=== PATIENT | female | born 1990 | race Caucasian/White ===

== ENCOUNTER 2020-07-31 23:16 | Inpatient (IN) | payer MEDICAID ==
[~2020-07-31] VITALS: Ht 157.5 cm; Wt 67.3 kg
--- NOTE | 2020-07-31 23:10 | NUR ---
GUILLERMO SANCHEZ presented to unit via W/C from home/ED, accompanied by Yina Ryan & DON, with c/o LABOR. GUILLERMO SANCHEZ weighed, gowned, voided, and to bed. EFHM and TOCO applied, VS taken. GUILLERMO SANCHEZ oriented to bed controls, call light, TV, heat, and A/C controls.
[2020-07-31 23:17] VITALS: BP 113/82
[2020-07-31] MEDS ORDERED: D5 LR IV SOLUTION 1,000 ML IV ONE (23:20)
[2020-07-31] MEDS ORDERED: OXYTOCIN PRE-MIX DRIP 500 ML IV ONE (23:27)
[2020-07-31] MEDS ORDERED: D5 LR IV SOLUTION 1,000 ML IV SCH (23:35)
[2020-07-31] MEDS ORDERED: OXYTOCIN PRE-MIX DRIP 500 ML IV SCH (23:37)
[2020-07-31 23:44] LABS: BASOPHILS % (AUTO) 0 % (0-10); EOSINOPHILS # (AUTO) 0.1 10^3/uL (0.0-0.3); EOSINOPHILS % (AUTO) 0 % (0-10); HEMATOCRIT 37 % (35-52); HEMOGLOBIN 12.7 G/DL (11.5-16.0); LYMPHOCYTES # (AUTO) 2.3 X 10^3 (1.0-4.0); LYMPHOCYTES % (AUTO) 19 % (12-44); MEAN CORPUSCULAR HEMOGLOBIN 33 PG (25-34); MEAN CORPUSCULAR HGB CONC 34 G/DL (32-36); MEAN CORPUSCULAR VOLUME 97 FL (80-99); MONOCYTES # (AUTO) 1.1 X 10^3 (0.0-1.0); MONOCYTES % (AUTO) 9 % (0-12); NEUTROPHILS # (AUTO) 8.6 X 10^3 (1.8-7.8); NEUTROPHILS % (AUTO) 72 % (42-75); PLATELET COUNT 264 10^3/uL (130-400)
[2020-07-31 23:46] VITALS: BP 122/83
[2020-07-31] MEDS ORDERED: fentaNYL 2 mcg/ml BUPIVA 0.125 0 ML ONE (23:52)
[2020-08-01] VITALS (14 sets, daily range): BP systolic 101–140; BP diastolic 60–89
[2020-08-01] MEDS ORDERED: LIDOCAINE 1% INJ 20 ML 20 ML VIAL ONE ×2 (00:02→00:14)
--- NOTE | 2020-08-01 00:41 | History & Physical-OB/GYN ---
History of Present Illness History of Present Illness Reason for visit/HPI Intrauterine at 39 3/7 weeks with SROM Date of Admission Jul 31, 2020 at 23:30 Date Seen by a Provider: Aug 01, 2020 Time Seen by a Provider: 00:10 I consulted on this patient on 08/01/20 00:36 Attending Physician Meño Witt DO Admitting Physician Meño Witt DO Consult Allergies and Home Medications Allergies Coded Allergies: No Known Drug Allergies (Unverified , 07/31/20) Patient Home Medication List Home Medication List Reviewed: Yes Past Azjhmqo-Hmdkbg-Svofyt Hx Patient Social History Marrital Status: Number of Children: 2 Number of living children: 2 Employed/Student: employed Alcohol Use: Denies Use Recreational Drug Use: No Smoking Status: Never a Smoker Physical Abuse Screen: No Sexual Abuse: No Recent Foreign Travel: No Contact w/other who traveled: No Recent Hopitalizations: No Recent Infectious Disease Expo: No Seasonal Allergies Seasonal Allergies: No Surgeries No Respiratory No Cardiovascular No Neurological No Reproductive System Expected Date of Delivery: Aug 05, 2020 Hx : 3 Hx Para: 2 Hx Total # of Abortions (Spona: 0 Genitourinary No Gastrointestinal No Musculoskeletal No Endocrine History of Endocrine Disorders: Yes (GDM) HEENT History of HEENT Disorders: No Cancer No Psychosocial History of Psychiatric Problem: Yes Behavioral Health Disorders: Anxiety Integumentary History of Skin or Integumenta: No Blood Transfusions History of Blood Disorders: No Adverse Reaction to a Blood Tr: No Family Medical History Family Hx: Patient reports no known family medical history. Review of Systems Constitutional: see HPI Physical Exam Physical Exam Vital Signs Vital Signs Date Time Temp Pulse Resp B/P (MAP) Pulse Ox O2 Delivery O2 Flow Rate FiO2 07/31/20 23:17 36.8 113 20 98 Room Air Capillary Refill : Less Than 3 Seconds Labs Laboratory Tests 07/31/20 23:25: White Blood Count 12.0H, Red Blood Count 3.82L, Hemoglobin 12.7, Hematocrit 37, Mean Corpuscular Volume 97, Mean Corpuscular Hemoglobin 33, Mean Corpuscular Hemoglobin Concent 34, Red Cell Distribution Width 14.0, Platelet Count 264, Mean Platelet Volume 11.0H, Neutrophils (%) (Auto) 72, Lymphocytes (%) (Auto) 19, Monocytes (%) (Auto) 9, Eosinophils (%) (Auto) 0, Basophils (%) (Auto) 0, Neutrophils # (Auto) 8.6H, Lymphocytes # (Auto) 2.3, Monocytes # (Auto) 1.1H, Eosinophils # (Auto) 0.1, Basophils # (Auto) 0.0 General Appearance: No Apparent Distress, WD/WN Respiratory: Chest Non Tender, Lungs Clear, Normal Breath Sounds Cardiovascular: Regular Rate, Rhythm, No Murmur Abdominal: normal bowel sounds, non tender, soft Labia: WNL Vagina: WNL Cervix: WNL Cervix OS: open Uterus: WNL Extremity: Normal Inspection, No Calf Tenderness Assessment/Plan Assessment and Plan Assessment: Intrauterine at 39 3/7 weeks with SROM Plan: Expectant management Admission Diagnosis Admission Status: Inpatient Order (span 2 midnights) Reason for Inpatient Admission: Intrauterine at 39 3/7 weeks with SROM Clinical Quality Measures DVT/VTE Risk/Contraindication: Risk Factor Score Per Nursin RFS Level Per Nursing on Admit: 1=Low/No VTE MEÑO STONE DO Aug 01, 2020 00:41
[2020-08-01] MEDS ORDERED: OXYTOCIN PRE-MIX DRIP 500 ML IV SCH (00:42)
[2020-08-01] MEDS ORDERED: WITCH HAZEL(TUCKS) 40 EA JAR TOP PRN (00:45)
[2020-08-01] MEDS ORDERED: BENZOCAINE/MENTHOL (DERMOPLAST) 60 ML CAN TP PRN (00:45)
[2020-08-01] MEDS ORDERED: MEASLES,MUMPS,RUBELLA 1 EA INJ SQ ONE (00:45)
[2020-08-01] MEDS ORDERED: TETANUS,DIPTH,PERTUSS P/F (BOOSTRIX) 0.5 ML VIAL IM ONE (00:45)
--- NOTE | 2020-08-01 00:49 | OB Labor & Delivery Record ---
Vag Delivery Note Vag Delivery Note Date of Delivery: 08/01/20 Preoperative Diagnosis: Scarlet Beasley is a (30 /Para 3 / 2, Gestational Age (wks)39 3/7 weeks with [SROM] Postoperative Diagnosis: Same Surgeon: SOLA MENDES Back Stayer: [None] Anesthesia: [None] Delivery Type: [Normal Spontaneous Vaginal Delivery ] Findings: [] Viable [male] , apgars [], weight [] Lacerations: Left elizabeth-urethral laceration--hemostatic--not repaired Intact placenta with 3 vessel cord. No nuchal cord, body cord or shoulder dystocia Estimated Blood Loss: [300] ml Complications: None Condition: Stable Description of Procedure: The patient is a 30 year old female who presented [with SROM]. She was admitted and informed consent was obtained. Her labor course was remarkable for [SROM at home] She progressed to complete dilatation and began to push. She was then set up for delivery. The infant's head was delivered atraumatically in the [TRUMAN] position. Nuchal cord x 1 manually reduced. The shoulders and remainder of the 's body were then delivered without difficulty. Upon delivery, the head was held below the level of the perineum and the mouth and nares were bulb suctioned. The cord was doubly clamped and cut and the infant was handed off to the pediatric staff where NRP protocol. An intact placenta with 3-vessel cord delivered via Olegario and there was found to be minimal bleeding.~ Vigorous fundal massage was performed and the fundus was found to be firm. IV oxytocin was given. Examination of the vagina and perineum revealed a [left elizabeth-urethral] laceration hemostatic, not repaired. Following the repair, sponge, instrument and needle counts were correct. Mom and baby were both in stable condition in the labor suite. Vitals - Labs Vital Signs - I&O Vital Signs Date Time Temp Pulse Resp B/P (MAP) Pulse Ox O2 Delivery O2 Flow Rate FiO2 07/31/20 23:17 36.8 113 20 98 Room Air Labs Laboratory Tests 07/31/20 23:25: White Blood Count 12.0H, Red Blood Count 3.82L, Hemoglobin 12.7, Hematocrit 37, Mean Corpuscular Volume 97, Mean Corpuscular Hemoglobin 33, Mean Corpuscular Hemoglobin Concent 34, Red Cell Distribution Width 14.0, Platelet Count 264, Mean Platelet Volume 11.0H, Neutrophils (%) (Auto) 72, Lymphocytes (%) (Auto) 19, Monocytes (%) (Auto) 9, Eosinophils (%) (Auto) 0, Basophils (%) (Auto) 0, Neutrophils # (Auto) 8.6H, Lymphocytes # (Auto) 2.3, Monocytes # (Auto) 1.1H, Eosinophils # (Auto) 0.1, Basophils # (Auto) 0.0 SOLA MENDES DO Aug 01, 2020 00:49
[2020-08-01] MEDS ORDERED: IBUPROFEN 800 MG (MOTRIN) TAB PO ONE (00:51)
[2020-08-01] MEDS ORDERED: ACETAMINOPHEN 500 MG TAB (TYLENOL) ONE (00:51)
--- NOTE | 2020-08-01 02:30 | NUR ---
Pericare completed. ff 2 below, moderate rubra noted. pt assisted to bedside and ambulated to bathroom. positive void. pericare completed. pt ambulated down to 310. Pt orientated to room. info papers discussed. call light within reach. Pt denies any need for pain medication at this time. Will continue to monitor.
[2020-08-01] MEDS ORDERED: CATHETER FLUSH 10 ML SYR IV SCH ×2 (06:00)
--- NOTE | 2020-08-01 08:53 | NUR ---
initial shift assessment completed, see interventions for further.
[2020-08-01] MEDS: IBUPROFEN 800 MG (MOTRIN) TAB PO SCH ×3 (09:07→22:01)
[2020-08-01] MEDS: DOCUSATE SODIUM 100 MG (COLACE) CAP PO SCH ×2 (09:07→22:01)
[2020-08-01] MEDS: ACETAMINOPHEN 500 MG TAB (TYLENOL) PO SCH ×2 (09:07→12:00)
[2020-08-01] MEDS: PRENATAL VITAMIN 1 EA TAB PO SCH (09:07)
--- NOTE | 2020-08-01 13:08 | Progress Note ---
Standard Progress Note Progress Notes/Assess & Plan Date Seen by a Provider: Aug 01, 2020 Time Seen by a Provider: 12:10 Progress/Assessment & Plan Subjective: Ms. Beasley is PPD#0 from an . She admits to feeling good, bleeding has slowed and pain is controlled. Objective: Vital signs are stable HEENT: Normal cephalic, atraumatic Heart: Regular rate and rhythm without appreciable murmur Lungs: Clear to auscultation bilaterally with good respiratory effort Abdomen: Good bowel sounds, no rebound, no guarding, fundus 6 cm below umbilicus Extremities: No cyanosis, clubbing--minimal edema Neurological: Alert and oriented, cooperative Assessment: PPD#0 Plan: Continue present care and pain management. With continue improvement, we will discharge to home tomorrow Final Diagnosis Intrauterine at 39 3/7 weeks--delivered SOLA MENDES DO Aug 01, 2020 13:08
[2020-08-02 03:45] VITALS: BP 110/70
[2020-08-02] MEDS: ACETAMINOPHEN 500 MG TAB (TYLENOL) PO SCH ×2 (03:53→08:27)
[2020-08-02 07:08] LABS: BASOPHILS % (AUTO) 0 % (0-10); EOSINOPHILS # (AUTO) 0.2 10^3/uL (0.0-0.3); EOSINOPHILS % (AUTO) 2 % (0-10); HEMATOCRIT 37 % (35-52); HEMOGLOBIN 12.5 G/DL (11.5-16.0); LYMPHOCYTES # (AUTO) 2.1 X 10^3 (1.0-4.0); LYMPHOCYTES % (AUTO) 17 % (12-44); MEAN CORPUSCULAR HEMOGLOBIN 33 PG (25-34); MEAN CORPUSCULAR HGB CONC 34 G/DL (32-36); MEAN CORPUSCULAR VOLUME 99 FL (80-99); MEAN PLATELET VOLUME 10.8 FL (7.4-10.4); MONOCYTES # (AUTO) 0.9 X 10^3 (0.0-1.0); MONOCYTES % (AUTO) 7 % (0-12); NEUTROPHILS # (AUTO) 9.7 X 10^3 (1.8-7.8); NEUTROPHILS % (AUTO) 75 % (42-75); PLATELET COUNT 205 10^3/uL (130-400)
[2020-08-02 08:20] VITALS: BP 133/84
[2020-08-02] MEDS: PRENATAL VITAMIN 1 EA TAB PO SCH (08:26)
[2020-08-02] MEDS: DOCUSATE SODIUM 100 MG (COLACE) CAP PO SCH (08:26)
[2020-08-02] MEDS: IBUPROFEN 800 MG (MOTRIN) TAB PO SCH (08:27)
[2020-08-02] MEDS ORDERED: IBUP-1780 PO (10:15)
[2020-08-02] MEDS ORDERED: ACET-93 PO (10:15)
[2020-08-02] MEDS ORDERED: DCS100C PO (10:15)
[2020-08-02] MEDS ORDERED: OXYC5TAB96 PO (10:15)
--- NOTE | 2020-08-02 10:20 | Discharge Summary ---
Diagnosis/Chief Complaint Date of Admission Jul 31, 2020 at 23:30 Date of Discharge August 02, 2020 Discharge Date: Aug 02, 2020 Discharge Time: 10:30 Admission Diagnosis Admission Diagnosis Intrauterine at 39 3/7 weeks 2. SROM Discharge Diagnosis Intrauterine at 39 3/7 weeks--delivered 2. SROM Reason Hospital Visit Intrauterine at 39 3/7 weeks with SROM Discharge Summary Hospital Course Was the Problem List Reviewed?: Yes Hospital Course Ms. Beasley, A0 at 39 3/7 weeks, presented to the hospital with SROM. She progressed rapidly to complete and delivered a healthy viable male . The remainder of her hospitalization was unremarkable. Her vital signs remained stable throughout the duration of her hospitalization I will discharge her to home with instructions, prescriptions and a follow up appointment. Labs Laboratory Tests 07/31/20 23:25: White Blood Count 12.0H, Red Blood Count 3.82L, Mean Platelet Volume 11.0H, Neutrophils # (Auto) 8.6H, Monocytes # (Auto) 1.1H 08/02/20 06:48: White Blood Count 13.0H, Red Blood Count 3.76L, Mean Platelet Volume 10.8H, Neutrophils # (Auto) 9.7H Procedures None. Discharge Physical Examination Allergies: Coded Allergies: No Known Drug Allergies (Unverified , 07/31/20) Vitals & I&Os Vital Signs Date Time Temp Pulse Resp B/P (MAP) Pulse Ox O2 Delivery O2 Flow Rate FiO2 08/02/20 08:20 36.8 77 16 133/84 (100) 100 Room Air General Appearance: Alert, Oriented X3, Cooperative HEENT: Atraumatic Respiratory: Clear to Auscultation, Normal Air Movement Cardiovascular: Regular Rate, No Murmurs Abdominal: Normal Bowel Sounds, Soft, No Tenderness Extremities: No Clubbing, No Cyanosis Skin: No Rashes Neuro: Normal Gait, Normal Speech Psych/Mental Status: Mental Status NL Discharge Home Medications Reviewed and agree with Discharge Medication list on patient's Discharge Instruction sheet Instructions to Patient/Family Please see electronic discharge instructions given to patient. Clinical Quality Measures DVT/VTE Risk/Contraindication: Risk Factor Score Per Nursin RFS Level Per Nursing on Admit: 1=Low/No VTE PPX SOLA MENDES DO Aug 02, 2020 10:20
--- NOTE | 2020-08-02 11:30 | NUR ---
Discharge instructions explained, signed and copy to pt. prescriptions given and explained, pt verbalalized understanding and denied questions.
[2020-08-02 12:11] VITALS: BP 133/84
--- NOTE | 2020-08-02 14:30 | NUR ---
Discharged to home. Ambulates self downstairs to private vehicle with belongings in hand. Accompanied by staff and .
== END 2020-08-02 14:30 | disposition home or self-care (01) | DRG 807 ==
LOC: WSo 23:16 → LDRP 23:19 → WSo 23:29 → LDRP 23:30
PROVIDERS: ADMIT Obstetrics & Gynecology; ATTEND Obstetrics & Gynecology
PROC: 10E0XZZ Delivery of Products of Conception, External Approach (ICD-10-PCS; principal; 2020-08-01)
DX: O24.429 Gestational diabetes mellitus in childbirth, unspecified control (principal); Z37.0 Single live birth; O69.81X0 Labor and delivery complicated by cord around neck, without compression, not applicable or unspecified; O71.82 Other specified trauma to perineum and vulva; O99.343 Other mental disorders complicating pregnancy, third trimester; F41.9 Anxiety disorder, unspecified; Z3A.39 39 weeks gestation of pregnancy; Z23 Encounter for immunization
CPT/HCPCS: 36415; 85025; 86850; 86900; 86901; 90715; 99212